=== PATIENT | male | born 1985 | race Asian ===

== ENCOUNTER 2018-08-09 11:11 | Emergency (ER) | payer BC, OTHER ==
[~2018-08-09] VITALS: Ht 167.6 cm; Wt 68.2 kg
[~2018-08-09 11:11] MED LIST: NOCURR
[2018-08-09 11:12] VITALS: BP 123/85
[2018-08-09] MEDS ORDERED: IBUPROFEN 800 MG TABLET PO ONE (13:00)
[2018-08-09] MEDS ORDERED: DiphenhydrAMINE HCL 25 MG CAPSULE PO ONE (13:30)
[2018-08-09] MEDS ORDERED: CEPHALEXIN MONOHYDRATE 500 MG CAPSULE PO ONE (13:30)
== END 2018-08-09 14:06 | disposition home or self-care (01) ==
LOC: EMS 11:12
DX: S60.561A Insect bite (nonvenomous) of right hand, initial encounter (principal); L03.113 Cellulitis of right upper limb; W57.XXXA Bitten or stung by nonvenomous insect and other nonvenomous arthropods, initial encounter; Y93.89 Activity, other specified; Y92.89 Other specified places as the place of occurrence of the external cause; Y99.8 Other external cause status